=== PATIENT | male | born 1985 | race Two or more races ===

== ENCOUNTER 2020-10-02 18:47 | Emergency (ER) | payer OTHER ==
[~2020-10-02] VITALS: Ht 177.8 cm; Wt 56.7 kg
[2020-10-02] MEDS ORDERED: AZITHROMYCIN 250 MG TABLET ONE (20:27)
[2020-10-02] MEDS ORDERED: CEFTRIAXONE 500 MG VIAL ONE (20:27)
[2020-10-02] MEDS ORDERED: LIDOCAINE /MPF 1% VIAL 5 ML VIAL ONE (20:28)
[2020-10-02] MEDS ORDERED: AZITHROMYCIN 250 MG TABLET PO ONE (20:30)
[2020-10-02] MEDS ORDERED: CEFTRIAXONE 1 G VIAL IM ONE (20:30)
[2020-10-02 21:21] VITALS: BP 118/59
== END 2020-10-02 20:55 | disposition home or self-care (01) ==
LOC: ER 18:51
DX: J02.9 Acute pharyngitis, unspecified (principal); Z20.2 Contact with and (suspected) exposure to infections with a predominantly sexual mode of transmission
CPT/HCPCS: 96372; 99283; J0696; J3490